=== PATIENT | female | born 1990 | race Caucasian/White ===

== ENCOUNTER 2018-10-27 15:14 | Outpatient (CLI) | payer OTHER, MEDICAID ==
[2018-10-27 16:10] LABS: APPEARANCE,URINE SLIGHTLY-CLOUDY; BILIRUBIN,URINE NEGATIVE (NEGATIVE); COLOR,URINE STRAW; GLUCOSE, URINE NEGATIVE (NEGATIVE); KETONES,URINE NEGATIVE (NEGATIVE); LEUKOCYTE ESTERASE,URINE SMALL (NEGATIVE); NITRITE,URINE NEGATIVE (NEGATIVE); PROTEIN,URINE NEGATIVE (NEGATIVE); URINE SPECIFIC GRAVITY 1.009; UROBILINOGEN,URINE NEGATIVE mg/dL (<2.0)
[2018-10-27 16:26] LABS: URINE AMPHETAMINES SCREEN NEGATIVE; URINE BARBITURATES SCREEN NEGATIVE; URINE BENZODIAZEPINES SCREEN NEGATIVE; URINE COCAINE SCREEN NEGATIVE; URINE MARIJUANA (THC) SCREEN NEGATIVE; URINE METHADONE SCREEN NEGATIVE; URINE PHENCYCLIDINE SCREEN NEGATIVE
== END 2018-10-27 16:45 | disposition home or self-care (01) ==
LOC: LC 15:14
PROVIDERS: ATTEND Obstetrics & Gynecology
PROC: 4A1HXCZ Monitoring of Products of Conception, Cardiac Rate, External Approach (ICD-10-PCS; principal; 2018-10-27)
DX: O47.03 False labor before 37 completed weeks of gestation, third trimester (principal); Z3A.36 36 weeks gestation of pregnancy
CPT/HCPCS: 59025; 80307; 81001

== ENCOUNTER → 2018-10-30 | Outpatient (CLI) | payer MEDICAID ==
[2018-11-01 05:40] LABS: HEPATITIS C VIRUS AB <0.1 s/co ratio (0.0-0.9)
== END ==
LOC: OD 16:47
PROVIDERS: ATTEND Advanced Practice Midwife
DX: Z34.93 Encounter for supervision of normal pregnancy, unspecified, third trimester (principal); Z11.9 Encounter for screening for infectious and parasitic diseases, unspecified
CPT/HCPCS: 36415; 86803; 86804

== ENCOUNTER 2018-11-17 08:44 | Outpatient (CLI) | payer MEDICAID ==
[2018-11-17 09:16] LABS: APPEARANCE,URINE CLOUDY; BILIRUBIN,URINE NEGATIVE (NEGATIVE); COLOR,URINE YELLOW; GLUCOSE, URINE NEGATIVE (NEGATIVE); KETONES,URINE NEGATIVE (NEGATIVE); LEUKOCYTE ESTERASE,URINE LARGE (NEGATIVE); NITRITE,URINE NEGATIVE (NEGATIVE); PROTEIN,URINE NEGATIVE (NEGATIVE); URINE SPECIFIC GRAVITY 1.003; UROBILINOGEN,URINE NEGATIVE mg/dL (<2.0)
[2018-11-17 09:39] LABS: URINE AMPHETAMINES SCREEN NEGATIVE; URINE BARBITURATES SCREEN NEGATIVE; URINE BENZODIAZEPINES SCREEN NEGATIVE; URINE COCAINE SCREEN NEGATIVE; URINE MARIJUANA (THC) SCREEN NEGATIVE; URINE METHADONE SCREEN NEGATIVE; URINE PHENCYCLIDINE SCREEN NEGATIVE
--- NOTE | 2018-11-17 11:59 | Non Stress Test Report ---
Non Stress Test Datetime Report Generated by CPN: 11/17/2018 11:59 DEMOGRAPHIC EGA NST: 39.2 INDICATION Indication for Study: Other Indication for Study (NST) Other: lc VITAL SIGNS Temperature - NST: 98.1 RESP - NST: 15 MONITORING Monitor Explained: Monitor Explained; Test Explained; Patient Verbalized Understanding Time on Monitor: 11/17/2018 09:05 Time off Monitor: 11/17/2018 11:58 NST Duration: 173 NST INTERVENTIONS NST Interventions: PO Hydration; Reposition Patient Physician Notified NST: Dr Pierre BABY A: [id number] BABY A Movement : Present Contraction Frequency : 91 FHR Baseline : 120 Accelerations : 15X15 Decelerations : None Variability : Moderate 6-25bpm NST Review: Meets Criteria for Reactive NST NST Review and Verified By : Steven May RN NST Results: Reactive NST REPORT Report Trigger: Send Report
== END 2018-11-17 12:06 | disposition home or self-care (01) ==
LOC: LC 08:44
PROVIDERS: ATTEND Obstetrics & Gynecology Gynecology
PROC: 4A1HXCZ Monitoring of Products of Conception, Cardiac Rate, External Approach (ICD-10-PCS; principal; 2018-11-17)
DX: Z34.93 Encounter for supervision of normal pregnancy, unspecified, third trimester (principal)
CPT/HCPCS: 59025; 80307; 81005

== ENCOUNTER 2018-11-17 16:45 | Inpatient (IN) | payer MEDICAID ==
[2018-11-17] MEDS ORDERED: VANCOMYCIN HCL INJ 1000 MG VIAL ONE (17:10)
[2018-11-17] MEDS ORDERED: CEFAZOLIN 1 GM/D5W RTU 1 GM/50 ML RTUPB IV ONE (17:15)
[2018-11-17] MEDS ORDERED: VANCOMYCIN HCL 1,000 MG in DEXTROSE 5%-WATER 250 ML IV SCH (17:15)
[2018-11-17] MEDS ORDERED: RINGERS SOLUTION,LACTATED 1,000 ML IV PRN (17:33)
[2018-11-17] MEDS ORDERED: LIDOCAINE 1% INJ-PF (10 MG/ML) 30 ML SDV ONE (17:48)
[2018-11-17] MEDS ORDERED: OXYTOCIN/NORMAL SALINE 20 UNIT/1,000 ML RTUINJ ONE (17:48)
[2018-11-17] MEDS ORDERED: MISOPROSTOL 0.2 MG TABLET ONE (17:48)
[2018-11-17] MEDS ORDERED: CEFAZOLIN 2 GM/D5W RTU 2 GM/50 ML RTUPB IV ONE (18:00)
[2018-11-17 18:16] LABS: ABSOLUTE LYMPHOCYTES (AUTO) 1.6 10^3/uL (0.5-4.7); ABSOLUTE MONOCYTES (AUTO) 0.4 10^3/uL (0.1-1.4); ABSOLUTE NEUT (AUTO) 7.4 10^3/uL (1.7-8.2); BASOPHILS % (AUTO) 0.3 % (0-2); EOSINOPHILS % (AUTO) 0.2 % (0-6); HEMATOCRIT 33.5 % (36.0-47.0); HEMOGLOBIN 11.4 g/dL (12.0-15.5); LYMPHOCYTES % (AUTO) 16.8 % (13-45); MEAN CORPUSCULAR HEMOGLOBIN 27.1 pg (27.0-33.4); MEAN CORPUSCULAR HGB CONC 34.1 g/dL (32.0-36.0); MEAN CORPUSCULAR VOLUME 80 fl (80-97); MONOCYTES % (AUTO) 4.2 % (3-13); PLATELET COUNT 208 10^3/uL (150-450); RED CELL DISTRIBUTION WIDTH 14.9 % (11.5-14.0); SEGMENTED NEUTROPHILS % (AUTO) 78.5 % (42-78); TOTAL CELLS COUNTED % (AUTO) 100 %; WHITE BLOOD COUNT 9.4 10^3/uL (4.0-10.5)
[2018-11-17] MEDS ORDERED: FENTANYL CITRATE INJ/PF 100 MCG/2 ML AMPUL ONE (18:28)
[2018-11-17] MEDS ORDERED: PHENYLEPHRINE HCL INJ/PF 10 MG/1 ML SDV ONE (18:28)
[2018-11-17] MEDS ORDERED: EPHEDRINE SULFATE INJ 50 MG/1 ML AMPULE ONE (18:28)
[2018-11-17] MEDS ORDERED: BUPIVACAINE HCL 0.25 % INJ/PF (2.5 MG/1 ML) 30 ML VIAL ONE (18:29)
[2018-11-17] MEDS ORDERED: FENTANYL/BUPIVACAINE/NS/PF 0 MCG/0 ML RTUINJ EPI ONE (18:29)
[2018-11-17] MEDS ORDERED: BUPIVACAINE HCL/NS/PF 125 MG/100 ML RTUINJ EPI ONE (18:55)
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
[2018-11-17] MEDS ORDERED: NA PHOS,M-B/NA PHOS,DI-BA (ADULT) 133 ML ENEMA PR PRN (21:35)
[2018-11-17] MEDS ORDERED: ZOLPIDEM TARTRATE 5 MG TABLET PO PRN (21:35)
[2018-11-17] MEDS ORDERED: ACETAMINOPHEN WITH CODEINE #3 TABLET PO PRN (21:35)
[2018-11-17] MEDS ORDERED: PSEUDOEPHEDRINE HCL 30 MG TABLET PO PRN (21:35)
[2018-11-17] MEDS ORDERED: PROMETHAZINE HCL INJ 25 MG/1 ML VIAL IV PRN (21:35)
[2018-11-17] MEDS ORDERED: DIPHENHYDRAMINE HCL 25 MG CAPSULE PO PRN (21:35)
[2018-11-17] MEDS ORDERED: PROMETHAZINE HCL 25 MG TABLET PO PRN (21:35)
[2018-11-17] MEDS ORDERED: ACETAMINOPHEN 650 MG SUPP.RECT PR PRN (21:35)
[2018-11-17] MEDS ORDERED: DIPH/PERTUSS(ACELL)/TETANUS VAC/PF 0.5 ML SYR (>=10YO) IM PRN (21:35)
[2018-11-17] MEDS ORDERED: DIBUCAINE 1% OINTMENT 28 GM TP PRN (21:35)
[2018-11-17] MEDS ORDERED: MAGNESIUM HYDROXIDE SUSP 30 ML UDCUP PO PRN (21:35)
[2018-11-17] MEDS ORDERED: PROMETHAZINE HCL 25 MG SUPP.RECT PR PRN (21:35)
[2018-11-17] MEDS ORDERED: BENZOCAINE/MENTHOL AEROSOL SPRAY 56 ML TOP PRN (21:35)
[2018-11-17] MEDS ORDERED: OXYTOCIN/NORMAL SALINE 20 UNIT/1,000 ML RTUINJ IV PRN (21:35)
[2018-11-17] MEDS ORDERED: MEASLES,MUMPS&RUBELLA VACC/PF 0.5 ML VIAL SUBCUT PRN (21:35)
[2018-11-17] MEDS ORDERED: GLYCERIN/WITCH HAZEL LEAF 1 EACH MED..PAD TP PRN (21:35)
--- NOTE | 2018-11-17 21:37 | PDOC DELIVERY SUMMARY ---
Delivery Summary - Maternal Ruptured Membranes: AROM Fluids: Clear - Delivery Presentation: Vertex Uterine Contraction Monitoring: External Support Person Present: Yes Placenta: Within Normal Limits Nuchal Cord: No
--- NOTE | 2018-11-17 22:26 | Delivery Summary ---
Del Sum A-C Datetime Report Generated by CPN: 11/17/2018 22:25 DELIVERY PERSONNEL DELIVERY PERSONNEL: [id number] Delivery Doctor:: Darrel Pierre MD Labor and Delivery Nurse:: Rocio Meyer RNcarpet or rug layer helper Nurse:: Nickie Ferguson RN MATERNAL INFORMATION Delivery Anesthesia: Epidural Medications During Delivery: Ancef Medications After Delivery: Pitocin Drip 20 Units/1000ml NSS Maternal Complications: None Other Maternal Complications: Provider arrived as baby was deliverying. Placenta delivered by provider. Complication Details: None LABOR SUMMARY EDC: 11/22/2018 00:00 (Annotations: Data stored by [facility] on behalf of user) No. Babies in Womb: 1 Attempted: No Labor Anesthesia: Epidural LABOR INFORMATION Reason for Induction: Not Applicable Onset of Labor: 11/17/2018 17:30 Complete Dilatation: 11/17/2018 20:35 Oxytocin: N/A Group B Beta Strep: pos Antibiotics # of Doses: 1 Antibiotics Time of Last Dose: 1730 Name of Antibiotic Given: Ancef Steroids Given: None Reason Steroids Not Administered: Not Applicable MEMBRANES Membranes Rupture Method: Artificial Rupture of Membranes: 11/17/2018 20:35 Length of Rupture (hr): 0.98 Amniotic Fluid Color: Clear Amniotic Fluid Amount: Moderate Amniotic Fluid Odor: Normal STAGES OF LABOR Stage 1 hr: 3 Stage 1 min: 5 Stage 2 hr: 0 Stage 2 min: 59 Stage 3 hr: 0 Stage 3 min: 2 Total Time in Labor hr: 4 Total Time in Labor min: 6 VAGINAL DELIVERY Episiotomy: None Laceration #1: None Laceration Extension #1: N/A Laceration Repair: No Sponge Count Correct: Yes Sharps Count Correct: Yes BABY A INFORMATION Infant Delivery Date/Time: 11/17/2018 21:34 Method of Delivery: Vaginal Born in Route : No : N/A Forceps: N/A Vacuum Extraction: N/A Shoulder Dystocia : No PRESENTATION/POSITION BABY A Presentation: Cephalic Cephalic Presentation: Vertex Vertex Position: Left Occipital Anterior Breech Presentation: N/A PLACENTA INFORMATION BABY A Placenta Delivery Time : 11/17/2018 21:36 Placenta Method of Delivery: Spontaneous Placenta Status: Delivered SCORES BABY A Heart Rate 1 min: >100 bpm Resp Effort 1 min: Good Cry Reflex Irritability 1 min: Cough or Sneeze or Pulls Away Muscle Tone 1 min: Active Motion Color 1 min: Body [place], Extremities Blue SCORE 1 MIN: 9 Heart Rate 5 min: >100 bpm Resp Effort 5 min: Good Cry Reflex Irritability 5 min: Cough or Sneeze or Pulls Away Muscle Tone 5 min: Active Motion Color 5 min: Body [place], Extremities Blue SCORE 5 MIN: 9 INFANT INFORMATION BABY A Gestational Age at Delivery: 39.2 Gestational Status: Full Term- 39- 40.6 Weeks Infant Outcome : Liveborn Infant Condition : Stable Infant Sex: Male IDENTIFICATION BABY A Verification Date/Time: 11/17/2018 21:56 ID Band Number: [id number] Mother's Name Verified: Yes RN Verifying : Nancy Richard RN Additional Verifying Personnel: German Gresham RN WEIGHT/LENGTH BABY A Birthweight (gm): 2648 Weight (lb): 5 Infant Weight (oz): 13 Infant Length (in): 19.25 Length (cm): 48.90 CORD INFORMATION BABY A No. Cord Vessels: 3 Nuchal Cord : N/A Cord Blood Taken: Yes-For Eval (Mom's Blood Type - or O+) Suction: None; Mouth ASSESSMENT BABY A Infant Complications: None Physical Findings at Delivery: Within Normal Limits Skin to Skin: Yes BABY B INFORMATION : N/A SIGNATURES Signature: with User ID: [email or web address]
[2018-11-17] MEDS ORDERED: IBUPROFEN 800 MG TABLET ONE (22:40)
[2018-11-17] MEDS: IBUPROFEN 800 MG TABLET PO SCH (22:42)
[2018-11-18] MEDS: FAMOTIDINE 20 MG TABLET PO SCH ×3 (00:26→21:22)
[2018-11-18] MEDS ORDERED: CEFAZOLIN 1 GM/D5W RTU 1 GM/50 ML RTUPB IV SCH (02:00)
[2018-11-18] MEDS: IBUPROFEN 800 MG TABLET PO SCH ×3 (06:09→21:22)
[2018-11-18 08:08] LABS: HEMOGLOBIN 9.8 g/dL (12.0-15.5); MEAN CORPUSCULAR HEMOGLOBIN 27.3 pg (27.0-33.4); MEAN CORPUSCULAR HGB CONC 33.8 g/dL (32.0-36.0); MEAN CORPUSCULAR VOLUME 81 fl (80-97); PLATELET COUNT 171 10^3/uL (150-450); RED CELL DISTRIBUTION WIDTH 14.8 % (11.5-14.0); WHITE BLOOD COUNT 11.3 10^3/uL (4.0-10.5)
--- NOTE | 2018-11-18 09:36 | PDOC PROGRESS REPORT ---
Subjective-OB Progress Note for:: 11/18/18 - PP Day #1, doing well, bottelgfeeding, O+ ,Rubella immune Physical Exam (OB) Vital Signs: Temp Pulse Resp BP Pulse Ox 98.0 F 65 17 100/65 97 11/18/18 08:00 11/18/18 08:00 11/18/18 08:00 11/18/18 08:00 11/18/18 08:00 Intake & Output 11/17/18 11/18/18 11/19/18 06:59 06:59 06:59 Intake Total 200 Balance 200 Weight 66.3 kg - General General Appearance: Appears well, Alert - PIH/Pre-Eclampsia Headache: Absent Epigastric Pain: No Visual Changes: No - Lochia Lochia Amount: Scant < 10 ml Lochia Color: Rubra/Red - Abdomen Description: Tender, Soft Hernia Present: No Fundal Description: Firm, Midline Fundal Height: u/u - u/2 - Respiratory Respiratory Status: No respiratory distress - Abdominal Inspection: Normal Distension: No distension Tenderness: Nontender - Genitourinary Genitourinary Note: voiding - Extremities Upper extremity: Normal inspection Lower extremities: Normal inspection - Neurological Cognition: Normal Orientation: AAOx4 - Psychological Associated symptoms: Normal affect, Normal mood - Skin Skin Temperature: Warm Skin Moisture: Dry Objective-Diagnostic Laboratory: 11/18/18 07:55 11/17/18 11/17/18 11/18/18 18:00 18:00 07:55 WBC 9.4 11.3 H RBC 4.20 3.60 L Hgb 11.4 L 9.8 L Hct 33.5 L 29.0 L MCV 80 81 MCH 27.1 27.3 MCHC 34.1 33.8 RDW 14.9 H 14.8 H Plt Count 208 171 Seg Neutrophils % 78.5 H Lymphocytes % 16.8 Monocytes % 4.2 Eosinophils % 0.2 Basophils % 0.3 Absolute Neutrophils 7.4 Absolute Lymphocytes 1.6 Absolute Monocytes 0.4 Absolute Eosinophils 0.0 Absolute Basophils 0.0 Blood Type O POSITIVE Antibody Screen NEGATIVE Assessment and Plan(PN) - Assessment and Plan (1) Anemia, Is this a current diagnosis for this admission?: Yes (2) Bipolar and schizophrenia Is this a current diagnosis for this admission?: Yes (3) History of anxiety Is this a current diagnosis for this admission?: Yes (4) Qualifiers: Weeks of gestation: 39 weeks Qualified Code(s): Z3A.39 - 39 weeks gestation of Is this a current diagnosis for this admission?: Yes (5) Tourette's syndrome Is this a current diagnosis for this admission?: Yes (6) Two vessel umbilical cord, delivered Is this a current diagnosis for this admission?: Yes (7) Vaginal delivery Is this a current diagnosis for this admission?: Yes - Time Spent with Patient Time with patient: Less than 15 minutes Medications reviewed and adjusted accordingly: Yes - Disposition Anticipated Discharge: Home Within: within 48 hours
[2018-11-18] MEDS: PRENATAL VITAMIN W DHA CAPSULE PO SCH (09:43)
[2018-11-18] MEDS: FERROUS SULFATE 325 MG TABLET PO SCH ×2 (09:43→17:48)
[2018-11-18] MEDS: SENNOSIDES/DOCUSATE 8.6-50 MG 1 EACH TABLET PO SCH (09:43)
[2018-11-18] MEDS: DOCUSATE SODIUM 100 MG CAPSULE PO SCH ×2 (09:43→17:48)
[2018-11-19] MEDS: IBUPROFEN 800 MG TABLET PO SCH ×2 (06:50→14:32)
[2018-11-19 08:49] VITALS: BP 115/69
[2018-11-19] MEDS: FAMOTIDINE 20 MG TABLET PO SCH (09:09)
[2018-11-19] MEDS: PRENATAL VITAMIN W DHA CAPSULE PO SCH (09:09)
[2018-11-19] MEDS: FERROUS SULFATE 325 MG TABLET PO SCH ×2 (09:09→18:42)
[2018-11-19] MEDS: SENNOSIDES/DOCUSATE 8.6-50 MG 1 EACH TABLET PO SCH (09:09)
[2018-11-19] MEDS: DOCUSATE SODIUM 100 MG CAPSULE PO SCH ×2 (09:10→18:42)
--- NOTE | 2018-11-19 09:20 | PDOC DISCHARGE SUMMARY ---
Final Diagnosis Discharge Date: 11/19/18 - Day #2, doing well, no complaints, O+ Rubella Immune - Final Diagnosis (1) Anemia, Is this a current diagnosis for this admission?: Yes (2) Bipolar and schizophrenia Is this a current diagnosis for this admission?: Yes (3) History of anxiety Is this a current diagnosis for this admission?: Yes (4) Is this a current diagnosis for this admission?: Yes (5) Tourette's syndrome Is this a current diagnosis for this admission?: Yes (6) Two vessel umbilical cord, delivered Is this a current diagnosis for this admission?: Yes (7) Vaginal delivery Is this a current diagnosis for this admission?: Yes Discharge Data - Discharge Medication Prescriptions: Ibuprofen [Motrin 800 mg Tablet] 800 mg PO Q8 #60 tablet Home Medications: Albuterol Sulfate [Proair HFA Inhalation Aerosol 8.5 gm MDI] 1 puff IH Q4H PRN #1 mdi 12/14/15 Vit/Iron Fum/Folic AC [ Tablet] 1 each PO DAILY 12/25/15 Ferrous Sulfate [Feosol 325 mg Tablet] 325 mg PO BID #0 tablet 04/20/16 Ibuprofen [Motrin 800 mg Tablet] 800 mg PO Q8 #60 tablet 11/19/18 Reason(s) for Admission: Onset of Labor Procedures: NST Intrapartum Procedure(s): Spontaneous Vaginal Delivery - Diagnosis Test Laboratory: Temp Pulse Resp BP Pulse Ox 98.0 F 61 18 128/75 H 98 11/19/18 08:42 11/19/18 08:42 11/19/18 08:42 11/19/18 08:42 11/19/18 08:42 11/17/18 11/18/18 18:00 07:55 RBC 4.20 3.60 L Hgb 11.4 L 9.8 L Hct 33.5 L 29.0 L - Discharge information/Instructions Discharge Activity: Activity As Tolerated, Balance Activity w/Rest, No Lifting Over 10 Pounds, Pelvic Rest, No tub bath Discharge Diet: As Tolerated, Regular Disposition: HOME, SELF-CARE Follow up with: [facility] in: 4, Weeks
== END 2018-11-19 18:59 | disposition home or self-care (01) | DRG 807 ==
LOC: LC 16:45 → LR 17:35 → 2S 23:48
PROVIDERS: ADMIT Obstetrics & Gynecology Gynecology; ATTEND Obstetrics & Gynecology Gynecology
PROC: 10E0XZZ Delivery of Products of Conception, External Approach (ICD-10-PCS; principal; 2018-11-17)
PROC: 4A1HXCZ Monitoring of Products of Conception, Cardiac Rate, External Approach (ICD-10-PCS; 2018-11-17)
DX: O99.824 Streptococcus B carrier state complicating childbirth (principal); O69.89X0 Labor and delivery complicated by other cord complications, not applicable or unspecified; O99.354 Diseases of the nervous system complicating childbirth; G43.909 Migraine, unspecified, not intractable, without status migrainosus; O99.344 Other mental disorders complicating childbirth; O99.02 Anemia complicating childbirth; F41.9 Anxiety disorder, unspecified; D64.9 Anemia, unspecified; F31.9 Bipolar disorder, unspecified; F95.2 Tourette's disorder; F20.9 Schizophrenia, unspecified; Z86.19 Personal history of other infectious and parasitic diseases; Z3A.39 39 weeks gestation of pregnancy; Z37.0 Single live birth
CPT/HCPCS: 36415; 85025; 85027; 86592; 86850; 86900; 86901; 94760; J0690; J2370; J2590; J3010; J3370; J3490

== ENCOUNTER 2020-10-24 02:13 | Emergency (ER) | payer MEDICAID ==
--- NOTE | 2020-10-24 04:33 | ER Document Report ---
ED Skin Rash/Insect Bite/Abscs - General Chief Complaint: Abscess Stated Complaint: ABSCESS RIGHT FOREARM Time Seen by Provider: 10/24/20 04:04 Primary Care Provider: ARIEL DAVALOS CNM [Primary Care Provider] - 10/26/20 Notes: Patient is a 29-year-old female that comes emergency department for chief complaint of a tender, swollen, red area over the right forearm. She states she recently obtained a tattoo over the same area although the tattoo had healed before this developed. She denies fever/chills, nausea/vomiting. She denies . She denies IV drug abuse. She denies any other complaints. She states that one small area came to ahead and drained but 2 additional areas seem to be developing adjacent to this. TRAVEL OUTSIDE OF THE [place] IN LAST 30 DAYS: No - Related Data Allergies/Adverse Reactions: fentanyl [Fentanyl] Allergy (Intermediate, Verified 04/18/16 07:04) Hives amoxicillin [Amoxicillin] Allergy (Mild, Verified 04/18/16 07:04) diphenhydramine HCl [From Benadryl] Allergy (Mild, Verified 04/18/16 07:04) divalproex sodium [From Depakote] Allergy (Mild, Verified 04/18/16 07:04) penicillin V [Penicillin V] Allergy (Mild, Verified 04/18/16 07:04) aspirin [Aspirin] Allergy (Verified 04/18/16 07:04) quetiapine fumarate [From Seroquel] Allergy (Verified 04/18/16 07:04) Past Medical History - General Information source: Patient - Social History Smoking Status: Never Smoker Chew tobacco use (# tins/day): No Frequency of alcohol use: None Drug Abuse: None Lives with: Family Family History: Reviewed & Not Pertinent, Other - seizures Pulmonary Medical History: Reports: Hx Asthma Neurological Medical History: Reports: Hx Migraine Renal/ Medical History: Reports: Hx Ovarian Cysts. Denies: Hx Peritoneal Dialysis Musculoskeletal Medical History: Reports Hx Musculoskeletal Trauma Skin Medical History: Reports Hx MRSA - noses abscess Psychiatric Medical History: Reports: Hx Bipolar Disorder, Hx Depression, Hx Schizophrenia Infectious Medical History: Reports: Hx MRSA Surgical Hx: Negative - Immunizations Immunizations up to date: Yes Hx Diphtheria, Pertussis, Tetanus Vaccination: Yes Review of Systems - Review of Systems Constitutional: No symptoms reported EENT: No symptoms reported Cardiovascular: No symptoms reported Respiratory: No symptoms reported Gastrointestinal: No symptoms reported Genitourinary: No symptoms reported Female Genitourinary: No symptoms reported Musculoskeletal: See HPI Skin: See HPI Hematologic/Lymphatic: No symptoms reported Neurological/Psychological: No symptoms reported Physical Exam - Vital signs Vitals: Temp Pulse Resp Pulse Ox 97.9 F 71 15 100 10/24/20 02:28 10/24/20 02:28 10/24/20 02:28 10/24/20 02:28 - Notes Notes: GENERAL: Alert, interactive, slightly anxious but otherwise well-appearing. Does not appear to be in distress HEAD: Normocephalic, atraumatic. EYES: Pupils equal, round, and reactive to light. Extraocular movements intact. ENT: Oral mucosa moist, tongue midline. Oropharynx unremarkable. Airway patent. LUNGS: Clear to auscultation bilaterally, no wheezes, rales, or rhonchi. No respiratory distress. Non-tender chest wall. HEART: Regular rate and rhythm. No murmur ABDOMEN: Soft, non-tender. Non-distended. EXTREMITIES: Moves all 4 extremities spontaneously. No edema, normal radial and dorsalis pedis pulses bilaterally. No cyanosis. See skin exam BACK: no cervical, thoracic, lumbar midline tenderness. No saddle anesthesia, normal distal neurovascular exam. Moves all extremities in full range of motion. NEUROLOGICAL: Alert and oriented x3. Normal speech. Cranial nerves II through XII grossly intact. Strength 5/5 in all extremities. PSYCH: Normal affect, normal mood. SKIN: The right mid forearm over the extensor surface has an area where there is a scab from what appears to be a resolved abscess, adjacent to this laterally there is erythema, very mild induration, and tenderness. There is no overt swelling of the arm. Full range of motion at the elbow and wrist. Normal distal neurovascular exam. No streaking away from the area. Course - Re-evaluation Re-evalutation: There is skin infection, cellulitis, however there is no definite abscess noted over the right forearm. On bedside ultrasound there was no drainable abscess noted. Patient is afebrile and well-appearing. There is no swelling of the upper extremity. There is no involvement of the joint. Patient is not a diabetic, denies IV drug abuse. Patient will be placed on antibiotics first, discussed care of this, follow-up, and return precautions. Patient states appreciation and agreement. Stable and well-appearing at time of discharge. - Vital Signs Vital signs: Temp Pulse Resp BP Pulse Ox 98.5 F 54 L 14 98/60 L 99 10/24/20 04:53 10/24/20 04:53 10/24/20 04:53 10/24/20 04:53 10/24/20 04:53 Discharge - Discharge Clinical Impression: Skin infection Condition: Stable Disposition: HOME, SELF-CARE Additional Instructions: There is a skin infection with cellulitis on your right forearm but no drainable abscess is seen at this time. Keep the area clean, clean with soap and water, apply warm compresses to the area several times a day. Take the antibiotics as prescribed to completion. I recommend that you rest your arm and elevate it for the next several days during recovery. Follow-up with primary care for additional management. Return for any concerning symptoms including spreading redness, increased swelling, fever, or any other concerning symptoms. Prescriptions: Sulfamethoxazole/Trimethoprim [Bactrim Ds Tablet] 1 each PO BID #14 tablet Cephalexin Monohydrate [Keflex 500 mg Capsule] 500 mg PO QID #28 capsule Referrals: ARIEL DAVALOS CNM [Primary Care Provider] - 10/26/20
[2020-10-24] MEDS ORDERED: SULFAMETHOXAZOLE/TRIMETHOPRIM 800-160 MG TABLET PO ONE (04:43)
[2020-10-24] MEDS ORDERED: HYDROCODONE/ACETAMINOPHEN 5-325 MG TABLET PO ONE (04:43)
[2020-10-24] MEDS ORDERED: CEPHALEXIN 500 MG CAPSULE PO ONE (04:43)
[2020-10-24 04:53] VITALS: BP 98/60
== END 2020-10-24 04:54 | disposition home or self-care (01) ==
LOC: ER 02:13
DX: L03.113 Cellulitis of right upper limb (principal); Z86.14 Personal history of Methicillin resistant Staphylococcus aureus infection
CPT/HCPCS: 99283; J3490